=== PATIENT | female | born 1970 | race Caucasian/White ===

== ENCOUNTER → 2022-01-09 | Outpatient (CLI) | payer OTHER ==
[~2022-01-09] MED LIST: ASPIRIN EC81 MG PO; NORVASC2.5 MG PO; PROTONIX 40 MG40 M1 PO; ZOFRAN ODT 4 MG4 MG PO
== END ==
LOC: SLEEP 13:33
DX: R29.818 Other symptoms and signs involving the nervous system (principal); R10.32 Left lower quadrant pain; K52.9 Noninfective gastroenteritis and colitis, unspecified; J30.9 Allergic rhinitis, unspecified; D17.71 Benign lipomatous neoplasm of kidney; F41.9 Anxiety disorder, unspecified
CPT/HCPCS: 95810